=== PATIENT | male | born 1970 | race Caucasian/White ===

== ENCOUNTER 2018-07-18 08:25 | Day surgery (SDC) | payer OTHER ==
[2018-07-18 08:52] VITALS: BMI 25.7
[2018-07-18 09:56] VITALS: TEMP 97
[2018-07-18 10:42] VITALS: BP 119/85; PULSE 65
--- NOTE | 2018-07-19 16:58 | PATH ---
Surgical Pathology Report Patient Name: JUDIE DIMAS [facility]. Rec. #: [id number] /Age/Gender: 1970 (Age: 48) / M Account: [id number] Location: [facility]-ENDOSCOPY Taken: 07/18/2018 Received: 07/18/2018 Reported: 07/19/2018 Physicians: Liss Storm M.D. Specimen(s) Received A: RECTAL POLYPS B: POLYPS, SIGMOID C: TRANSVERSE COLON POLYPS D: ILEOCECAL VALVE POLYPS Clinical History Colon cancer screening Postoperative diagnosis: Polyps Final Diagnosis A. RECTAL POLYPS, POLYPECTOMY: HYPERPLASTIC POLYP, MULTIPLE FRAGMENTS.. B. SIGMOID POLYPS, POLYPECTOMY: TUBULAR ADENOMA, TWO FRAGMENTS. HYPERPLASTIC POLYP, MULTIPLE FRAGMENTS. C. TRANSVERSE COLON POLYPS, POLYPECTOMY: TUBULAR ADENOMA, MULTIPLE FRAGMENTS. SEPARATE HYPERPLASTIC POLYP, MULTIPLE FRAGMENTS. D. ILEOCECAL VALVE POLYPS, BIOPSY: FRAGMENTS OF COLONIC MUCOSA WITH SURFACE HYPERPLASTIC CHANGE. Electronically Signed Risa Germain M.D. Gross Description A. Received in formalin, labeled "biopsy rectal polyps" are 4 alexis, irregular portions of soft tissue ranging from 0.2-0.4 cm. in greatest dimension. The specimens are submitted in toto in one cassette. B. Received in formalin, labeled "sigmoid polyps" are 5 alexis, irregular portions of soft tissue ranging from 0.4-0.5 cm. in greatest dimension. The specimens are submitted in toto in one cassette. C. Received in formalin labeled "transverse colon polyps," is a 1.0 x 0.8 x 0.2 cm aggregate of alexis soft tissue fragments. The formalin is filtered and the specimen is entirely submitted in one cassette. D. Received in formalin, labeled "biopsy ileocecal valve polyp" is a alexis, irregular portion of soft tissue measuring 0.5 cm. in greatest dimension. The specimen is submitted in toto in one cassette. 07/18/201807/18/2018
== END 2018-07-18 10:42 | disposition home or self-care (01) ==
LOC: JASU-ENDO 08:25
PROVIDERS: ATTEND Internal Medicine Gastroenterology
PROC: 0DBC8ZX Excision of Ileocecal Valve, Via Natural or Artificial Opening Endoscopic, Diagnostic (ICD-10-PCS; 2018-07-18)
PROC: 0DBN8ZX Excision of Sigmoid Colon, Via Natural or Artificial Opening Endoscopic, Diagnostic (ICD-10-PCS; 2018-07-18)
PROC: 0DBP8ZX Excision of Rectum, Via Natural or Artificial Opening Endoscopic, Diagnostic (ICD-10-PCS; 2018-07-18)
PROC: 0DBL8ZX Excision of Transverse Colon, Via Natural or Artificial Opening Endoscopic, Diagnostic (ICD-10-PCS; principal; 2018-07-18 09:00)
DX: Z12.11 Encounter for screening for malignant neoplasm of colon (principal); K62.1 Rectal polyp; D12.5 Benign neoplasm of sigmoid colon; D12.3 Benign neoplasm of transverse colon
CPT/HCPCS: 88305-TC